=== PATIENT | female | born 1965 | race Caucasian/White ===

== ENCOUNTER 2019-04-14 09:59 | Day surgery (SDC) | payer BC ==
[2019-04-14] MEDS ORDERED: PROPOFOL 10 MG/ML VIAL IV ONE (10:00)
[2019-04-14] MEDS ORDERED: LIDOCAINE 2% MDV (20MG/ML) 20ML VIAL IV ONE (10:00)
--- NOTE | 2019-04-16 10:42 | Operative Note ---
OPERATION: COLONOSCOPY to the cecum. INDICATION: Prior history of adenomatous polyps. The patient's last colonoscopy was 10 years ago. She returns at this time for surveillance. ANESTHESIA: Intravenous sedation was administered by the department of anesthesiology and included Diprivan titrated to effect. PROCEDURE: Following informed consent from this alert individual including a discussion of the risks and benefits of the procedure and an opportunity for the patient to ask questions, the patient was in the left lateral decubitus position. A digital rectal examination was performed. No abnormalities were noted. Following this, the Olympus [id number] video colonoscope was inserted into the rectum without resistance. The rectal mucosa had a normal appearance with normal folds and distensibility. The colonoscope was advanced up through the colon to the level of the cecum without much difficulty. Throughout the bowel the mucosa appeared normal, the folds were normal, and the bowel was fairly well distensible. The cecum was defined by noting the appendiceal orifice and ileocecal valve. From the base of the cecum, the colonoscope was then slowly withdrawn. The colon preparation overall was good. Again no abnormalities were noted throughout the bowel upon withdrawal. Retroflexion in the rectum failed to demonstrate any changes. The endoscope was straightened and removed. The patient tolerated the procedure well and was returned to the recovery area in stable condition. IMPRESSION: Unremarkable colonoscopy to the cecum. RECOMMENDATIONS: The patient was advised to have recheck colonoscopy in 5 years' time for a prior history of adenomatous polyps. She will otherwise follow up with Dejan West DO. As always, thank you for allowing me to participate in the care of your patient. CRISTHIAN
== END 2019-04-14 12:34 | disposition home or self-care (01) ==
LOC: HOP 09:59
PROVIDERS: ATTEND Internal Medicine Gastroenterology
DX: Z12.11 Encounter for screening for malignant neoplasm of colon (principal); Z86.010 Personal history of colon polyps
CPT/HCPCS: 00812; G0105